=== PATIENT | male | born 1985 ===

== ENCOUNTER 2019-06-26 19:05 | Emergency (ER) | payer SELFPAY ==
[2019-06-26 19:27] VITALS: TEMP 98.2; BMI 23.1
--- NOTE | 2019-06-26 19:40 | PDOC ---
Attending Attestation - Resident Resident Name: Melissa Soliman - HPI HPI: 06/26/19 21:16 Pt presents to the ED complaining of the acute onset of R flank pain. Denies fever, nausea or vomiting. Denies urinary or testicular complaints. - Physicial Exam PE: 06/26/19 21:29 Agree with resident exam. Patient is alert and oriented and in no acute distress. Abdomen is soft, non distended and non tender. No CVA tenderness. - Medical Decision Making 06/26/19 21:30 Pt presents to the ED complaining of flank pain. differential includes renal stone, muscular pain. Will give pain control, check CT to rule out renal stones.
[2019-06-26] MEDS ORDERED: KETOROLAC TROMETHAMINE 15 MG/ML VIAL IVPUSH ONE ×2 (19:41→20:41)
[2019-06-26] MEDS ORDERED: KETOROLAC TROMETHAMINE 15 MG/ML VIAL ONE ×2 (19:45→21:07)
--- NOTE | 2019-06-26 19:49 | PDOC ---
History of Present Illness - General Chief Complaint: Pain, Acute Stated Complaint: RT SIDE BACK PAIN Time Seen by Provider: 06/26/19 19:36 - History of Present Illness Initial Comments: 06/26/19 19:48 33 yo M no PMH presenting with R flank pain. Started about 2 hours ago, sharp, 10/10, radiating into suprapubic area, associated with dysuria, unalleviated by 800 mg ibuprofen. Had similar, albeit less intense, pain 2 days ago which was relieved by ibuprofen at that time. Never had these symptoms before. Denies N/V, CP, SOB, abdominal pain, constipation/diarrhea, fevers/chills. Past History - Past Medical History Allergies/Adverse Reactions: Allergies Allergy/AdvReac Type Severity Reaction Status Date / Time No Known Allergies Allergy Verified 06/26/19 19:28 COPD: No - Psycho Social/Smoking Cessation Hx Smoking History: Current every day smoker Number of Cigarettes Smoked Daily: 20 Information on smoking cessation initiated: No Hx Alcohol Use: No Drug/Substance Use Hx: No Review of Systems - Review of Systems Constitutional: No: Chills, Diaphoresis, Fever HEENTM: No: Recent change in vision, Hearing Loss, Throat Swelling, Difficulty Swallowing Respiratory: No: Cough, Orthopnea, Shortness of Breath Cardiac (ROS): No: Chest Pain, Chest Tightness ABD/GI: No: Constipated, Diarrhea, Nausea, Vomiting : Yes: Dysuria, Flank Pain. No: Burning, Discharge, Frequency, Hematuria Musculoskeletal: Yes: Back Pain (R CVA) Neurological: No: Headache, Numbness, Tingling, Weakness *Physical Exam - Vital Signs Last Vital Signs Temp Pulse Resp BP Pulse Ox 98.2 F 57 L 19 131/86 100 06/26/19 19:25 06/26/19 19:25 06/26/19 19:25 06/26/19 19:25 06/26/19 19:25 - Physical Exam Comments: 06/26/19 19:48 Gen: well-developed, well-nourished, in acute distress, rolling around in bed Neuro: AAOX4, CN II-XII intact, FTN intact, EOMI, PERRLA, 5/5 strength, SILT HEENT: atraumatic, normocephalic Neck: trachea midline, supple CV: regular rate, regular rhythm, no murmurs, rubs, or gallops Pulm: CTA b/l, no wheezing Abd: soft, non-distended, non-tender : normal testes and penis, circumcised, no ttp Back: + R CVA tenderness MSK: full ROM, intact pulses Extr: no edema, no deformities Skin: warm, dry ED Treatment Course - LABORATORY CBC & Chemistry Diagram: 06/26/19 19:48 06/26/19 19:48 Medical Decision Making - Medical Decision Making 06/26/19 19:53 Concern for R kidney stone. - CBC, CMP - UA/UC - ketorolac 15mg - 1L LR - spiral CT 06/26/19 20:49 WBC 16.6, UA with 3+ blood. Will f/u spiral CT. Patient still in pain, will give ketorolac 15mg. 06/26/19 22:15 Patient feeling significantly better. 06/26/19 22:43 CT scan with 4mm R kidney stone. Will dc home, patient has ibuprofen at home. Also with 3mm nodule in R lower lobe, will have followed outpatient. Discharge - Discharge Information Problems reviewed: Yes Clinical Impression/Diagnosis: Right kidney stone Condition: Improved Disposition: HOME - Admission No - Follow up/Referral Referrals: Lalito Kline MD [Staff Physician] - - Patient Discharge Instructions Patient Printed Discharge Instructions: DI for Kidney Stones Additional Instructions: You were seen with right flank pain. A CT scan was performed, which showed a 4mm kidney stone. This is likely to pass without intervention. Please drink lots of fluids, and take ibuprofen 800mg every 8 hours as needed for pain. Follow up with your primary care doctor within 1 week. Call and make an appointment with the urologist (Dr. Kline) for within 1 week. Return to the ED if you develop worsening symptoms. - Post Discharge Activity
[2019-06-26] MEDS ORDERED: LACTATED RINGERS SOLUTION 1,000 ML/1,000 ML INFUS.BAG IV STA (19:54)
[2019-06-26 20:02] LABS: BASO % 0.6 % (0-2.0); EOS % 0.2 % (0-4.5); HEMOGLOBIN 14.8 GM/dL (11.7-16.9); LYMPH % 10.2 % (8-40); MCH 32.5 pg (25.7-33.7); MEAN CELL VOLUME 90.4 fl (80-96); MEAN PLT VOLUME 11.2 fl (7.5-11.1); MONO % 5.2 % (3.8-10.2); NEUT % 83.8 % (42.8-82.8); PLATELET COUNT 187 K/MM3 (134-434); RBC 4.54 M/mm3 (4.00-5.60); WHITE BLOOD COUNT 16.6 K/mm3 (4.0-10.0)
[2019-06-26 20:20] LABS: EPI CELLS 0.8 /HPF (0-5/HPF); HYALINE CASTS 2 /lpf (0-8); PH,URINE 5.5 (5.0-8.0); URINE APPEARANCE CLOUDY; URINE BACTERIA 1.4 /hpf (NEGATIVE); URINE BILIRUBIN NEGATIVE (NEGATIVE); URINE COLOR DK YELLOW; URINE GLUCOSE (UA) NEGATIVE (NEGATIVE); URINE KETONE 1+ (NEGATIVE); URINE LEUK ESTERASE NEGATIVE (NEGATIVE); URINE NITRITE NEGATIVE (NEGATIVE); URINE PROTEIN 1+ (NEGATIVE); URINE RBC 189 /hpf (0-4); URINE WBC 4 /hpf (0-5)
[2019-06-26 20:40] LABS: ALBUMIN 4.2 g/dl (3.4-5.0); BILIRUBIN,TOTAL 0.5 mg/dL (0.2-1); BLOOD UREA NITROGEN 19.1 mg/dL (7-18); CALCIUM 8.8 mg/dL (8.5-10.1); MAGNESIUM 2.2 mg/dL (1.8-2.4); POTASSIUM 3.8 mmol/L (3.5-5.1); TOT PROT 6.8 g/dl (6.4-8.2)
[2019-06-26 23:16] VITALS: BP 126/82; PULSE 62
== END 2019-06-26 23:10 | disposition home or self-care (01) ==
LOC: JER 19:05
PROC: 3E0333Z Introduction of Anti-inflammatory into Peripheral Vein, Percutaneous Approach (ICD-10-PCS; principal; 2019-06-26)
PROC: 3E0337Z Introduction of Electrolytic and Water Balance Substance into Peripheral Vein, Percutaneous Approach (ICD-10-PCS; 2019-06-26)
DX: N20.0 Calculus of kidney (principal); F17.210 Nicotine dependence, cigarettes, uncomplicated
CPT/HCPCS: 36415; 74176-TC; 80053; 81003; 83735; 85025; 87086; 99283-25